=== PATIENT | male | born 1945 | race Caucasian/White ===

== ENCOUNTER 2021-03-07 23:09 | Inpatient (IN) | payer MEDICAID, MEDICARE ==
[~2021-03-07] VITALS: Ht 180.3 cm; Wt 65.1 kg
[~2021-03-07 23:09] MED LIST: ACET-2274 PO; ALBU1.25 NEB; ALBU8.5H5 INH; AMIT100T PO; ARIP10TA33 PO; CLON-364 PO; CYAN-27 PO; DOCU-131 PO; FAMO20TA7 PO; FLUT1DIS3 INH; FOLI1TAB32 PO; GABA-826 PO; LEVO500T47 PO; LEVO750T26 PO; LORA1TAB PO; LORA2TAB99 PO; Lorazepam PO; METH4TAB2 PO; METR500T PO; TIOT18CA INH; TRAM50TA2 PO; TRAZ50TA66 PO
--- NOTE | 2021-03-07 23:12 | NUR ---
PT KAILEE FROM [place]-TERM WITH OFFICERS AT BEDSIDE, PT HAS BEEN EXPERIENCING SOB AND GENERALIZED WEAKNESS FOR 2 DAYS NOW, PT ON 82% ON RA, THIS RN PUT PT ON NC RUNNING AT 6LPM, PT Mary/MD FLAKITA AT BEDSIDE TO DISCUSS POC
[2021-03-07] MEDS ORDERED: methylPREDNISolone SOD SUCC 125 MG/2 ML IVPush ONE (23:30)
[2021-03-07] MEDS ORDERED: CEFTRIAXONE 1,000 MG in DEXTROSE 5% 50 ML IVPB ONE (23:30)
[2021-03-07] MEDS ORDERED: AZITHROMYCIN 500 MG in SODIUM CHLORIDE 0.9% 250 ML IV ONE (23:30)
[2021-03-07] MEDS ORDERED: methylPREDNISolone SOD SUCC 125 MG/2 ML ONE (23:34)
[2021-03-07 23:43] LABS: BASOPHILS % (AUTO) 0 % (0-1); EOSINOPHILS % (AUTO) 0 % (1-7); LYMPHOCYTES % (AUTO) 19 % (22-44); MEAN CORPUSCULAR HEMOGLOBIN 28.6 pg (27.5-34.5); MEAN CORPUSCULAR HGB CONC 33.6 g/dL (33.2-36.2); MEAN PLATELET VOLUME 7.8 fL (7.4-10.4); MONOCYTES % (AUTO) 9 % (2-9); NEUTROPHILS % (AUTO) 72 % (42-75); PLATELET COUNT 212 x10^3/uL (130-400); RED BLOOD COUNT 4.28 x10^6/uL (4.38-5.82); RED CELL DISTRIBUTION WIDTH 15.9 % (9.4-14.8)
[2021-03-07 23:55] LABS: ALANINE AMINOTRANSFERASE 22 U/L (12-78); ALBUMIN 2.6 g/dL (3.4-5.0); ANION GAP 7 mmol/L (5-15); CHLORIDE 97 mmol/L (98-107); CREATININE 0.75 mg/dL (0.7-1.3)
[2021-03-07 23:59] LABS: ALKALINE PHOSPHATASE 74 U/L (45-117); BILIRUBIN,TOTAL 0.4 mg/dL (0.2-1.0); TOTAL PROTEIN 6.9 g/dL (6.4-8.2); TROPONIN I < 0.015 ng/mL (0.000-0.045)
--- NOTE | 2021-03-08 00:36 | NUR ---
BREAK RN: PT RESTING ON GURBARNUM W/ LAW ENFORCEMENT AT BEDSIDE. DARRYN DYE. AWAITING ADMIT.
[2021-03-08] MEDS ORDERED: ONDANSETRON 2MG/ML, 2ML IVPush PRN (01:00)
[2021-03-08] MEDS ORDERED: POLYETHYLENE GLYCOL 17 GM PACKET PO PRN (01:00)
[2021-03-08] MEDS ORDERED: LABETALOL 5MG/ML, 20ML IVPush PRN (01:00)
[2021-03-08] MEDS ORDERED: PHARMACY MAY ADJ FOR RENAL FX MC PRN (01:00)
[2021-03-08] MEDS ORDERED: SODIUM CHLORIDE 0.9% 1,000 ML IV SCH (01:00)
--- NOTE | 2021-03-08 01:02 | NUR ---
BREAK RN: PER TRANSFER [facility] FROM [facility], PT HAD POSITIVE COVID TEST ON 03/04
[2021-03-08 01:56] VITALS: BP 100/66
[2021-03-08 02:00] VITALS: BP 100/66
[2021-03-08] MEDS ORDERED: BISA-49 PO (03:04)
[2021-03-08] MEDS ORDERED: TAMS-11 PO (03:07)
[2021-03-08] MEDS ORDERED: AMIT100T PO (03:07)
[2021-03-08] MEDS ORDERED: OMEP20CA20 PO (03:07)
[2021-03-08] MEDS: ENOXAPARIN 40 MG/0.4 ML SQ SCH (03:18)
[2021-03-08] MEDS: DEXAMETHASONE 4 MG/ML, 1ML IVPush SCH ×3 (05:19→19:01)
[2021-03-08] MEDS: ALBUTEROL-IPRATROPIUM MDI INH INH SCH ×4 (07:00→21:00)
[2021-03-08 07:58] VITALS: BP 117/72
[2021-03-08] MEDS: ASCORBIC ACID 500 MG TABLET PO SCH ×2 (08:58→21:00)
[2021-03-08] MEDS: FAMOTIDINE 20 MG TABLET PO SCH ×2 (08:58→21:00)
[2021-03-08] MEDS: ZINC SULFATE 220 MG CAPSULE PO SCH (08:58)
[2021-03-08 13:56] VITALS: BP 104/68
[2021-03-08 19:08] VITALS: BP 102/66
[2021-03-09 01:10] VITALS: BP 108/71
[2021-03-09] MEDS: DEXAMETHASONE 4 MG/ML, 1ML IVPush SCH ×4 (02:12→21:30)
[2021-03-09] MEDS: ENOXAPARIN 40 MG/0.4 ML SQ SCH (02:38)
[2021-03-09] MEDS ORDERED: MORPHINE SULFATE 4 MG/ML, 1ML ONE (03:20)
[2021-03-09] MEDS ORDERED: MORPHINE SULFATE 4 MG/ML, 1ML IVPush ONE (03:30)
[2021-03-09 05:32] LABS: BASOPHILS % (AUTO) 0 % (0-1); EOSINOPHILS % (AUTO) 0 % (1-7); LYMPHOCYTES % (AUTO) 8 % (22-44); MEAN CORPUSCULAR HEMOGLOBIN 28.6 pg (27.5-34.5); MEAN CORPUSCULAR HGB CONC 33.3 g/dL (33.2-36.2); MEAN PLATELET VOLUME 7.8 fL (7.4-10.4); MONOCYTES % (AUTO) 8 % (2-9); NEUTROPHILS % (AUTO) 83 % (42-75); PLATELET COUNT 288 x10^3/uL (130-400); RED BLOOD COUNT 4.25 x10^6/uL (4.38-5.82); RED CELL DISTRIBUTION WIDTH 16.5 % (9.4-14.8)
[2021-03-09 05:42] LABS: ANION GAP 6 mmol/L (5-15); CALCIUM 8.2 mg/dL (8.5-10.1); CHLORIDE 102 mmol/L (98-107)
[2021-03-09 05:43] LABS: CREATININE 0.69 mg/dL (0.7-1.3)
[2021-03-09] MEDS: ALBUTEROL-IPRATROPIUM MDI INH INH SCH ×4 (07:00→21:28)
[2021-03-09 07:54] VITALS: BP 95/60
[2021-03-09] MEDS: FAMOTIDINE 20 MG TABLET PO SCH ×2 (10:29→21:29)
[2021-03-09] MEDS: ZINC SULFATE 220 MG CAPSULE PO SCH (10:29)
[2021-03-09] MEDS: ASCORBIC ACID 500 MG TABLET PO SCH ×2 (10:29→21:28)
[2021-03-09 12:05] VITALS: BP 101/64
[2021-03-09 19:06] VITALS: BP 112/70
[2021-03-10 02:15] VITALS: BP 104/68
[2021-03-10] MEDS: DEXAMETHASONE 4 MG/ML, 1ML IVPush SCH ×2 (03:31→09:00)
[2021-03-10] MEDS: ENOXAPARIN 40 MG/0.4 ML SQ SCH (03:31)
[2021-03-10] MEDS: ALBUTEROL-IPRATROPIUM MDI INH INH SCH ×4 (07:00→20:44)
[2021-03-10 08:55] VITALS: BP 104/68
[2021-03-10] MEDS: ASCORBIC ACID 500 MG TABLET PO SCH ×2 (08:57→20:44)
[2021-03-10] MEDS: ZINC SULFATE 220 MG CAPSULE PO SCH (08:58)
[2021-03-10] MEDS: CHOLECALCIFEROL 5,000u TAB PO SCH (08:58)
[2021-03-10] MEDS: TAMSULOSIN 0.4 MG CAP.ER.24H PO SCH (08:58)
[2021-03-10] MEDS: FAMOTIDINE 20 MG TABLET PO SCH ×2 (08:58→20:44)
[2021-03-10] MEDS: THIAMINE 100MG TABLET PO SCH (08:59)
[2021-03-10 14:52] VITALS: BP 104/68
[2021-03-10 19:49] VITALS: BP 117/70
[2021-03-10] MEDS: MELATONIN 5 MG TABLET PO PRN (20:44)
[2021-03-11 01:15] VITALS: BP 125/70
[2021-03-11] MEDS: ENOXAPARIN 40 MG/0.4 ML SQ SCH (03:09)
[2021-03-11 04:32] LABS: BASOPHILS % (AUTO) 0 % (0-1); EOSINOPHILS % (AUTO) 0 % (1-7); LYMPHOCYTES % (AUTO) 9 % (22-44); MEAN CORPUSCULAR HEMOGLOBIN 28.6 pg (27.5-34.5); MEAN CORPUSCULAR HGB CONC 33.1 g/dL (33.2-36.2); MEAN PLATELET VOLUME 7.5 fL (7.4-10.4); MONOCYTES % (AUTO) 8 % (2-9); NEUTROPHILS % (AUTO) 83 % (42-75); PLATELET COUNT 368 x10^3/uL (130-400); RED BLOOD COUNT 3.87 x10^6/uL (4.38-5.82); RED CELL DISTRIBUTION WIDTH 16.4 % (9.4-14.8)
[2021-03-11 04:43] LABS: ALBUMIN 2.2 g/dL (3.4-5.0); ANION GAP 5 mmol/L (5-15); CALCIUM 8.2 mg/dL (8.5-10.1); CHLORIDE 103 mmol/L (98-107)
[2021-03-11 04:45] LABS: ALANINE AMINOTRANSFERASE 40 U/L (12-78); ALKALINE PHOSPHATASE 65 U/L (45-117); BILIRUBIN,TOTAL 0.3 mg/dL (0.2-1.0); C-REACTIVE PROTEIN, QUANT 0.14 mg/dL (0.02-0.49); CREATININE 0.59 mg/dL (0.7-1.3); TOTAL PROTEIN 6.1 g/dL (6.4-8.2)
[2021-03-11 05:37] LABS: HCT (SEDRATE) 33.4 % (39.2-51.8)
[2021-03-11] MEDS: ALBUTEROL-IPRATROPIUM MDI INH INH SCH ×4 (06:17→19:55)
[2021-03-11 08:04] VITALS: BP 120/71
[2021-03-11] MEDS: ASCORBIC ACID 500 MG TABLET PO SCH ×2 (08:58→19:55)
[2021-03-11] MEDS: THIAMINE 100MG TABLET PO SCH (08:59)
[2021-03-11] MEDS: CHOLECALCIFEROL 5,000u TAB PO SCH (09:00)
[2021-03-11] MEDS: FAMOTIDINE 20 MG TABLET PO SCH ×2 (09:00→19:55)
[2021-03-11] MEDS: ZINC SULFATE 220 MG CAPSULE PO SCH (09:00)
[2021-03-11] MEDS: TAMSULOSIN 0.4 MG CAP.ER.24H PO SCH (09:00)
[2021-03-11] MEDS: DEXAMETHASONE 4 MG/ML, 1ML IVPush SCH (09:01)
[2021-03-11 13:09] VITALS: BP 125/75
[2021-03-11] MEDS: NS + 20MEQ KCL 1,000 ML IV SCH (13:12)
[2021-03-11] MEDS: MELATONIN 5 MG TABLET PO PRN (19:54)
[2021-03-11 19:59] VITALS: BP 127/75
[2021-03-12 01:51] VITALS: BP 123/72
[2021-03-12] MEDS: ENOXAPARIN 40 MG/0.4 ML SQ SCH (03:05)
[2021-03-12] MEDS: NS + 20MEQ KCL 1,000 ML IV SCH (03:06)
[2021-03-12 05:29] LABS: ALBUMIN 2.4 g/dL (3.4-5.0); ANION GAP 3 mmol/L (5-15); CALCIUM 8.6 mg/dL (8.5-10.1); CHLORIDE 101 mmol/L (98-107)
[2021-03-12 05:30] LABS: MEAN CORPUSCULAR HEMOGLOBIN 28.6 pg (27.5-34.5); MEAN CORPUSCULAR HGB CONC 32.9 g/dL (33.2-36.2); MEAN PLATELET VOLUME 7.6 fL (7.4-10.4); PLATELET COUNT 427 x10^3/uL (130-400); RED CELL DISTRIBUTION WIDTH 16.1 % (9.4-14.8)
[2021-03-12 05:35] LABS: ALANINE AMINOTRANSFERASE 34 U/L (12-78); ALKALINE PHOSPHATASE 68 U/L (45-117); BILIRUBIN,TOTAL 0.7 mg/dL (0.2-1.0); CREATININE 0.53 mg/dL (0.7-1.3); TOTAL PROTEIN 6.6 g/dL (6.4-8.2)
[2021-03-12 06:19] LABS: BAND#(MANUAL) 0.12 x10^3/uL; BANDS%(MANUAL) 1 % (0-7); LYMPH#(MANUAL) 1.09 x10^3/uL (1-3.4); LYMPHS% (MANUAL) 9 % (22-44); MONOS#(MANUAL) 0.97 x10^3/uL (0.3-2.7); MONOS% (MANUAL) 8 % (2-9); MYELOCYTES# (MANUAL) 0.24 x10^3/uL (0-0); MYELOCYTES% (MANUAL) 2 % (0-0); REACTIVE LYMPHS # (MANUAL) 0.24 x10^3/uL (0-0); REACTIVE LYMPHS % (MANUAL) 2 % (0-0); SEG#(MANUAL) 9.44 x10^3/uL (1.8-6.8); SEGS% (MANUAL) 78 % (42-75)
[2021-03-12 06:20] LABS: ANISOCYTOSIS 1+
[2021-03-12] MEDS: ALBUTEROL-IPRATROPIUM MDI INH INH SCH ×4 (06:20→20:15)
[2021-03-12 06:21] LABS: <PLATELET ESTIMATE> INCREASED; <PLT MORPHOLOGY> NORMAL PLT MORPH; POLYCHROMASIA 1+
[2021-03-12] MEDS: THIAMINE 100MG TABLET PO SCH (09:00)
[2021-03-12] MEDS: ASCORBIC ACID 500 MG TABLET PO SCH ×2 (09:21→20:15)
[2021-03-12] MEDS: ZINC SULFATE 220 MG CAPSULE PO SCH (09:22)
[2021-03-12] MEDS: FAMOTIDINE 20 MG TABLET PO SCH ×2 (09:22→20:15)
[2021-03-12] MEDS: CHOLECALCIFEROL 5,000u TAB PO SCH (09:22)
[2021-03-12] MEDS: TAMSULOSIN 0.4 MG CAP.ER.24H PO SCH (09:22)
[2021-03-12] MEDS: DEXAMETHASONE 4 MG/ML, 1ML IVPush SCH (09:23)
[2021-03-12] MEDS ORDERED: REMDESIVIR 200 MG in SODIUM CHLORIDE 0.9% 250 ML IVPB ONE (12:00)
[2021-03-12 12:57] VITALS: BP 131/81
[2021-03-12 19:40] VITALS: BP 135/77
[2021-03-12] MEDS: MELATONIN 5 MG TABLET PO PRN (20:15)
[2021-03-12] MEDS: AMITRIPTYLINE 50 MG TABLET PO SCH (20:15)
[2021-03-12] MEDS: DULOXETINE 30 MG CAPSULE.DR PO SCH (20:15)
[2021-03-13 00:19] VITALS: BP 113/70
[2021-03-13] MEDS: ENOXAPARIN 40 MG/0.4 ML SQ SCH (03:14)
[2021-03-13 05:54] LABS: HCT (SEDRATE) 36.1 % (39.2-51.8)
[2021-03-13 05:58] LABS: BASOPHILS % (AUTO) 0 % (0-1); EOSINOPHILS % (AUTO) 0 % (1-7); LYMPHOCYTES % (AUTO) 10 % (22-44); MEAN CORPUSCULAR HEMOGLOBIN 28.4 pg (27.5-34.5); MEAN CORPUSCULAR HGB CONC 32.7 g/dL (33.2-36.2); MEAN PLATELET VOLUME 7.7 fL (7.4-10.4); MONOCYTES % (AUTO) 9 % (2-9); NEUTROPHILS % (AUTO) 81 % (42-75); PLATELET COUNT 453 x10^3/uL (130-400); RED BLOOD COUNT 4.15 x10^6/uL (4.38-5.82); RED CELL DISTRIBUTION WIDTH 15.7 % (9.4-14.8)
[2021-03-13 06:06] LABS: CHLORIDE 101 mmol/L (98-107)
[2021-03-13 06:24] LABS: ALANINE AMINOTRANSFERASE 36 U/L (12-78); ALBUMIN 2.5 g/dL (3.4-5.0); ALKALINE PHOSPHATASE 70 U/L (45-117); ANION GAP 5 mmol/L (5-15); BILIRUBIN,TOTAL 0.5 mg/dL (0.2-1.0); CALCIUM 8.8 mg/dL (8.5-10.1); CREATININE 0.63 mg/dL (0.7-1.3); TOTAL PROTEIN 6.8 g/dL (6.4-8.2)
[2021-03-13] MEDS: ALBUTEROL-IPRATROPIUM MDI INH INH SCH ×4 (09:07→21:11)
[2021-03-13] MEDS: DEXAMETHASONE 4 MG/ML, 1ML IVPush SCH (09:08)
[2021-03-13] MEDS: ZINC SULFATE 220 MG CAPSULE PO SCH (09:14)
[2021-03-13] MEDS: ASCORBIC ACID 500 MG TABLET PO SCH ×2 (09:15→21:11)
[2021-03-13] MEDS: FAMOTIDINE 20 MG TABLET PO SCH ×2 (09:15→21:11)
[2021-03-13] MEDS: THIAMINE 100MG TABLET PO SCH (09:15)
[2021-03-13] MEDS: CHOLECALCIFEROL 5,000u TAB PO SCH (09:15)
[2021-03-13] MEDS: TAMSULOSIN 0.4 MG CAP.ER.24H PO SCH (09:15)
[2021-03-13 14:23] VITALS: BP 101/65
[2021-03-13] MEDS: REMDESIVIR 100 MG in SODIUM CHLORIDE 0.9% 250 ML IVPB SCH (15:34)
[2021-03-13 19:56] VITALS: BP 100/67
[2021-03-13] MEDS: DULOXETINE 30 MG CAPSULE.DR PO SCH (21:11)
[2021-03-13] MEDS: AMITRIPTYLINE 50 MG TABLET PO SCH (21:11)
[2021-03-14 01:07] VITALS: BP 116/72
[2021-03-14] MEDS: ENOXAPARIN 40 MG/0.4 ML SQ SCH (02:23)
[2021-03-14 05:13] LABS: BASOPHILS % (AUTO) 1 % (0-1); EOSINOPHILS % (AUTO) 0 % (1-7); HCT (SEDRATE) 35.7 % (39.2-51.8); LYMPHOCYTES % (AUTO) 12 % (22-44); MEAN CORPUSCULAR HEMOGLOBIN 29.1 pg (27.5-34.5); MEAN CORPUSCULAR HGB CONC 33.3 g/dL (33.2-36.2); MEAN PLATELET VOLUME 7.5 fL (7.4-10.4); MONOCYTES % (AUTO) 9 % (2-9); NEUTROPHILS % (AUTO) 78 % (42-75); PLATELET COUNT 495 x10^3/uL (130-400); RED BLOOD COUNT 4.03 x10^6/uL (4.38-5.82); RED CELL DISTRIBUTION WIDTH 16.2 % (9.4-14.8)
[2021-03-14 05:21] LABS: ALANINE AMINOTRANSFERASE 33 U/L (12-78); ALBUMIN 2.5 g/dL (3.4-5.0); ANION GAP 4 mmol/L (5-15); CALCIUM 8.4 mg/dL (8.5-10.1); CHLORIDE 101 mmol/L (98-107); CREATININE 0.63 mg/dL (0.7-1.3)
[2021-03-14 05:27] LABS: ALKALINE PHOSPHATASE 66 U/L (45-117); BILIRUBIN,TOTAL 0.6 mg/dL (0.2-1.0); TOTAL PROTEIN 6.6 g/dL (6.4-8.2)
[2021-03-14 10:31] VITALS: BP 101/63
[2021-03-14] MEDS: CHOLECALCIFEROL 5,000u TAB PO SCH (10:36)
[2021-03-14] MEDS: THIAMINE 100MG TABLET PO SCH (10:36)
[2021-03-14] MEDS: ZINC SULFATE 220 MG CAPSULE PO SCH (10:36)
[2021-03-14] MEDS: TAMSULOSIN 0.4 MG CAP.ER.24H PO SCH (10:36)
[2021-03-14] MEDS: FAMOTIDINE 20 MG TABLET PO SCH ×2 (10:36→20:47)
[2021-03-14] MEDS: ASCORBIC ACID 500 MG TABLET PO SCH ×2 (10:36→20:39)
[2021-03-14] MEDS: DEXAMETHASONE 4 MG/ML, 1ML IVPush SCH (10:37)
[2021-03-14] MEDS: ALBUTEROL-IPRATROPIUM MDI INH INH SCH ×4 (11:00→20:47)
[2021-03-14 12:37] VITALS: BP 99/64
[2021-03-14] MEDS: REMDESIVIR 100 MG in SODIUM CHLORIDE 0.9% 250 ML IVPB SCH (15:03)
[2021-03-14] MEDS: DULOXETINE 30 MG CAPSULE.DR PO SCH (20:39)
[2021-03-14] MEDS: AMITRIPTYLINE 50 MG TABLET PO SCH (20:39)
[2021-03-14 20:51] VITALS: BP 100/58
[2021-03-15 00:25] VITALS: BP 94/57
[2021-03-15] MEDS: ALBUTEROL-IPRATROPIUM MDI INH INH SCH ×3 (06:32→15:13)
[2021-03-15 07:28] VITALS: BP 98/62
[2021-03-15 08:11] LABS: MEAN CORPUSCULAR HEMOGLOBIN 28.8 pg (27.5-34.5); MEAN CORPUSCULAR HGB CONC 33.2 g/dL (33.2-36.2); MEAN PLATELET VOLUME 7.6 fL (7.4-10.4); PLATELET COUNT 491 x10^3/uL (130-400); RED BLOOD COUNT 4.04 x10^6/uL (4.38-5.82); RED CELL DISTRIBUTION WIDTH 15.7 % (9.4-14.8)
[2021-03-15 08:12] LABS: CHLORIDE 101 mmol/L (98-107)
[2021-03-15 08:16] LABS: HCT (SEDRATE) 35.1 % (39.2-51.8)
[2021-03-15 08:24] LABS: ALANINE AMINOTRANSFERASE 25 U/L (12-78); ALBUMIN 2.5 g/dL (3.4-5.0); ALKALINE PHOSPHATASE 61 U/L (45-117); ANION GAP 5 mmol/L (5-15); BILIRUBIN,TOTAL 0.6 mg/dL (0.2-1.0); CALCIUM 8.5 mg/dL (8.5-10.1); CREATININE 0.65 mg/dL (0.7-1.3); TOTAL PROTEIN 6.4 g/dL (6.4-8.2)
[2021-03-15 09:11] LABS: BAND#(MANUAL) 0.33 x10^3/uL; BANDS%(MANUAL) 3 % (0-7); EOS#(MANUAL) 0.11 x10^3/uL (0.0-0.4); EOS% (MANUAL) 1 % (1-7); METAMYELOCYTES# (MANUAL) 0.44 x10^3/uL (0-0); METAMYELOCYTES% (MANUAL) 4 % (0-1); MONOS#(MANUAL) 1.09 x10^3/uL (0.3-2.7); MONOS% (MANUAL) 10 % (2-9)
[2021-03-15 09:12] LABS: <PLATELET ESTIMATE> INCREASED; <PLT MORPHOLOGY> NORMAL PLT MORPH; ANISOCYTOSIS 1+; LYMPH#(MANUAL) 1.74 x10^3/uL (1-3.4); LYMPHS% (MANUAL) 16 % (22-44); SEG#(MANUAL) 7.19 x10^3/uL (1.8-6.8); SEGS% (MANUAL) 66 % (42-75)
[2021-03-15] MEDS: TAMSULOSIN 0.4 MG CAP.ER.24H PO SCH (09:21)
[2021-03-15] MEDS: DEXAMETHASONE 4 MG/ML, 1ML IVPush SCH (09:21)
[2021-03-15] MEDS: ZINC SULFATE 220 MG CAPSULE PO SCH (09:22)
[2021-03-15] MEDS: THIAMINE 100MG TABLET PO SCH (09:22)
[2021-03-15] MEDS: ENOXAPARIN 40 MG/0.4 ML SQ SCH (09:22)
[2021-03-15] MEDS: ASCORBIC ACID 500 MG TABLET PO SCH (09:22)
[2021-03-15] MEDS: FAMOTIDINE 20 MG TABLET PO SCH (09:22)
[2021-03-15] MEDS: CHOLECALCIFEROL 5,000u TAB PO SCH (09:22)
[2021-03-15 13:09] VITALS: BP 100/64
[2021-03-15] MEDS: REMDESIVIR 100 MG in SODIUM CHLORIDE 0.9% 250 ML IVPB SCH (13:58)
== END 2021-03-15 19:50 | DRG 177 ==
LOC: ED 03-08 00:09 → EDIP 03-08 01:28 → 3N 03-08 01:51
PROVIDERS: ADMIT Internal Medicine; ATTEND Family Medicine
PROC: 0T9B30Z Drainage of Bladder with Drainage Device, Percutaneous Approach (ICD-10-PCS; principal; 2021-03-09)
PROC: XW033E5 Introduction of Remdesivir Anti-infective into Peripheral Vein, Percutaneous Approach, New Technology Group 5 (ICD-10-PCS; 2021-03-12)
DX: U07.1 COVID-19 (principal); J96.01 Acute respiratory failure with hypoxia; J12.82 Pneumonia due to coronavirus disease 2019; E87.1 Hypo-osmolality and hyponatremia; J44.0 Chronic obstructive pulmonary disease with (acute) lower respiratory infection; J44.1 Chronic obstructive pulmonary disease with (acute) exacerbation; D64.9 Anemia, unspecified; F17.200 Nicotine dependence, unspecified, uncomplicated; F31.9 Bipolar disorder, unspecified; R33.9 Retention of urine, unspecified
CPT/HCPCS: 36415; 36600; 71045; 80048; 80053; 82728; 82803; 83605; 83615; 83880; 84145; 84484; 84550; 85025; 85379; 85651; 86140; 87040; 93005; 96374; 96375; G0378; J0456; J0696; J1100; J1650; J2405; J3480; J2270; J2930; J7050